=== PATIENT | female | born 1990 | race Caucasian/White ===

== ENCOUNTER → 2024-04-29 10:57 | Outpatient (REF) | payer OTHER, SELFPAY ==
[2024-04-29 14:37] LABS: Mumps Virus IgG Positive; Rubeola (Measles) IgG Positive; Varicella Zoster IgG (VZV) Positive
[2024-04-29 18:26] LABS: Hepatitis B Surface Antibody Positive
[2024-04-29 19:48] LABS: Rubella Positive
[2024-05-01 10:21] LABS: Quantiferon Plus TB1 minus NIL 0.01 IU/mL (<=0.34); Quantiferon TB Gold Plus Negative (Negative)
== END ==
LOC: OHS 10:57
PROVIDERS: ATTENDING PHYSICIAN Nurse Practitioner Family
DX: Z23 Encounter for immunization (principal)
CPT/HCPCS: 36415; 86480; 86706; 86735; 86762; 86765; 86787

== ENCOUNTER → 2024-10-26 07:25 | Outpatient (REF) | payer BC, SELFPAY ==
[2024-10-26 08:53] LABS: Hematocrit 40.2 % (37.0-47.0); Hemoglobin 13.8 g/dL (12.0-16.0); Mean Corp Hgb Conc. 34.3 g/dL (33.0-37.0); Mean Corpuscular Volume 91.0 fL (81.0-99.0); Nucleated Red Blood Cells % 0 %; Platelet Count 309 10^3/uL (130-400); Red Cell Dist. Width 12.2 % (11.5-14.5)
[2024-10-26 09:55] LABS: TSH 2.93 uIU/ml (0.47-4.68)
[2024-10-26 10:34] LABS: ALT (SGPT) 130 U/L (0-35); AST (SGOT) 63 U/L (14-36); Albumin 5.0 g/dl (3.5-5.0); Alkaline Phosphatase 87 U/L (38-126); Blood Urea Nitrogen 11 mg/dl (7-17); Calcium 9.6 mg/dl (8.4-10.2); Carbon Dioxide 23 mmol/L (22-30); Chloride 107 mmol/L (98-107); Glucose 91 mg/dl (70-99); HDL Cholesterol 55 mg/dl; LDL Cholesterol, Calculated 165 mg/dl; Potassium 4.7 mmol/L (3.5-5.1); Sodium 138 mmol/L (135-145); Total Protein 7.5 g/dl (6.3-8.2); Very Low Density Lipoprotein 25 mg/dl (0-30); eGFR > 60.00
[2024-10-26 16:31] LABS: Hepatitis B Surface Antigen Negative (Negative)
[2024-10-26 16:48] LABS: Hepatitis C Antibody Negative (Negative)
[2024-10-26 17:30] LABS: Syphilis/T. pallidum Ab Reflex Negative (Negative)
== END ==
LOC: REG 07:25
PROVIDERS: ATTENDING PHYSICIAN Nurse Practitioner Obstetrics & Gynecology; FAMILY PHYSICIAN Physician Assistant Medical
DX: Z76.89 Persons encountering health services in other specified circumstances (principal); N39.0 Urinary tract infection, site not specified; E78.2 Mixed hyperlipidemia; Z11.3 Encounter for screening for infections with a predominantly sexual mode of transmission
CPT/HCPCS: 36415; 80053; 80061; 84443; 85025; 86780; 86803; 87340; 87389

== ENCOUNTER → 2024-12-31 16:02 | Outpatient (REF) | payer BC, SELFPAY | LOC: REG 16:02 | PROVIDERS: ATTENDING PHYSICIAN Physician Assistant Medical | DX: Z01.84 Encounter for antibody response examination (principal) | CPT/HCPCS: 36415; 86706; 86735; 86762; 86765 ==